=== PATIENT | female | born 1985 | race African-American/Black ===

== ENCOUNTER 2018-03-18 12:32 | Emergency (ER) | payer BC ==
[~2018-03-18] VITALS: Ht 165.1 cm; Wt 102.1 kg
[~2018-03-18 12:32] MED LIST: COZAAR 50 MG TA50 M2 PO; PREDNISONE 20 M20 MG PO; VENTOLIN HFA 1818 GM INH; WELLBUTRIN XL300 MG PO
[2018-03-18 12:56] LABS: URINE BILIRUBIN NEGATIVE (Negative); URINE BLOOD NEGATIVE (Negative); URINE CLARITY CLEAR; URINE COLOR YELLOW; URINE GLUCOSE-RANDOM* NEGATIVE (Negative); URINE KETONES NEGATIVE (Negative); URINE LEUKOCYTES-REFLEX NEGATIVE (Negative); URINE NITRITE-REFLEX NEGATIVE (Negative); URINE PROTEIN (DIPSTICK) NEGATIVE (Negative); URINE SPECIFIC GRAVITY 1.025 (1.005-1.035); URINE UROBILINOGEN 0.2 E.U./dl (0.2-1.0)
[2018-03-18 13:24] LABS: ABSOLUTE NEUTROPHILS 3.9 thou/uL (1.4-8.2); BASOPHILS 1.4 % (0.0-2.0); EOSINOPHILS 1.3 % (0.0-3.0); HEMATOCRIT 37.3 % (37.0-47.0); HEMOGLOBIN 12.6 gm/dL (12.0-15.0); LYMPHOCYTES 30.7 % (24.0-44.0); MCH 26.6 pg (26.0-34.0); MCHC 33.8 g/dL (28.0-37.0); MCV 78.5 fL (80.0-100.0); MONOCYTES 9.1 % (1.0-8.0); PLATELET COUNT 449 thou/uL (150-400); POLYS 57.5 % (36.0-66.0); RBC 4.75 mil/uL (4.20-5.00); RDW 13.4 % (10.5-14.5); WBC 6.7 thou/uL (4.0-11.0)
[2018-03-18 13:35] LABS: CREATININE 0.8 mg/dL (0.6-1.0); POTASSIUM 3.5 mmol/L (3.5-5.1)
[2018-03-18 13:41] LABS: ALBUMIN 3.3 g/dL (3.4-5.0); TOTAL BILIRUBIN 0.2 mg/dL (<0.1-1.0); TOTAL PROTEIN 8.2 g/dL (6.4-8.2)
[2018-03-18] MEDS ORDERED: PHENTERMINE HCL30 MG PO (13:45)
[2018-03-18] MEDS ORDERED: OMEPRAZOLE20 M2 PO (13:45)
[2018-03-18] MEDS ORDERED: NORVASC5 MG PO (13:46)
[2018-03-18] MEDS ORDERED: EFFEXOR XR75 MG PO (13:46)
[2018-03-18] MEDS ORDERED: CARAFATE 1 GM TA1 G1 PO (14:41)
[2018-03-18] MEDS ORDERED: PEPCID20 MG PO (14:41)
[2018-03-18] MEDS ORDERED: ONDANSETRON HCL4 M2 PO (14:45)
[2018-03-18 14:48] VITALS: BP 124/84
[2018-03-18] MEDS ORDERED: BENTYL 10 MG CA10 M1 PO (14:52)
== END 2018-03-18 14:55 | disposition home or self-care (01) ==
LOC: ER 12:32
PROVIDERS: Physician Assistant
DX: K29.70 Gastritis, unspecified, without bleeding (principal); Z88.2 Allergy status to sulfonamides; Z90.10 Acquired absence of unspecified breast and nipple; Z98.890 Other specified postprocedural states; Z90.49 Acquired absence of other specified parts of digestive tract

== ENCOUNTER 2019-03-01 21:58 | Emergency (ER) | payer BC ==
[~2019-03-01] VITALS: Ht 157.5 cm; Wt 99.8 kg
[~2019-03-01 21:58] MED LIST changes: +BENTYL 10 MG CA10 M1 PO; +CARAFATE 1 GM TA1 G1 PO; +EFFEXOR XR75 MG PO; +NORVASC5 MG PO; +OMEPRAZOLE20 M2 PO; +ONDANSETRON HCL4 M2 PO; +PEPCID20 MG PO; +PHENTERMINE HCL30 MG PO
[2019-03-01] MEDS ORDERED: HYDROCHLOROTHIA25 M2 PO (22:46)
[2019-03-01 23:14] LABS: CALCIUM 9.2 mg/dL (8.5-10.1); CREATININE 0.8 mg/dL (0.6-1.0); POTASSIUM 3.3 mmol/L (3.5-5.1)
[2019-03-01 23:18] LABS: HEMATOCRIT 36.6 % (37.0-47.0); HEMOGLOBIN 12.1 gm/dL (12.0-15.0); MCH 26.1 pg (26.0-34.0); MCV 78.9 fL (80.0-100.0); RBC 4.63 mil/uL (4.20-5.00); RDW 13.4 % (10.5-14.5); WBC 8.9 thou/uL (4.0-11.0)
[2019-03-01] MEDS ORDERED: EFFEXOR XR75 MG PO (23:28)
[2019-03-01 23:35] VITALS: BP 130/82
== END 2019-03-01 23:36 | disposition home or self-care (01) ==
LOC: ER 21:58
PROVIDERS: Student in an Organized Health Care Education/Training Program
DX: R20.0 Anesthesia of skin (principal); Z76.0 Encounter for issue of repeat prescription; Z88.2 Allergy status to sulfonamides